=== PATIENT | female | born 1935 | race Caucasian/White ===

== ENCOUNTER 2016-06-19 11:01 | Day surgery (SDCO) | payer MEDICARE, OTHER ==
[2016-06-19 11:24] LABS: BILIRUBIN NEGATIVE (NEGATIVE); BLOOD TRACE-INTACT Ery/uL (NEGATIVE); COLOR YELLOW (YELLOW); GLUCOSE (U) NORMAL (NORMAL); KETONE (U) TRACE mg/dL (NEGATIVE); LEUKOCYTES 2+ Leu/uL (NEGATIVE); NITRITE NEGATIVE (NEGATIVE); PROTEIN NEGATIVE (NEGATIVE); UROBILINOGEN 0.2 mg/dL (0.2-1.0)
[2016-06-19 11:27] LABS: CLARITY HAZY (CLEAR)
[2016-06-19 11:28] LABS: SQUAMOUS EPITHELIAL CELLS RARE
[2016-06-19 12:14] LABS: BASOPHIL 0.2 % (0-2); EOSINOPHIL 0.5 % (0-7); HCT 39.6 % (37.0-47.0); HGB 14.2 g/dl (12.5-16.0); LYMPHOCYTE 15.1 % (15-48); MCHC 35.9 g/dL (32.0-36.0); MCV 86.5 fL (78.0-100.0); MONOCYTE 8.4 % (0-12); MPV 9.4 fL (6.0-9.5); NEUTROPHIL 75.8 % (41-80); PLT 263 K/uL (150-400); RBC 4.58 M/uL (4.20-5.40); RDW 12.5 % (11.5-14.0); WBC 8.3 K/uL (4.0-10.5)
[2016-06-19 12:35] LABS: ALBUMIN 4.4 g/dL (3.4-4.8); BILIRUBIN - TOTAL 0.7 mg/dL (0.1-1.0); CREATININE 0.9 mg/dL (0.5-1.0); GLOBULIN (CALCULATION) 2.8 g/dL (2.2-4.2); POTASSIUM 4.3 mmol/L (3.5-5.1); TOTAL PROTEIN 7.2 g/dL (6.4-8.3)
[2016-06-20 05:33] LABS: CREATININE 0.8 mg/dL (0.5-1.0); POTASSIUM 3.9 mmol/L (3.5-5.1)
[2016-06-20] MEDS ORDERED: PRAVACHOL40 MG PO (11:23)
[2016-06-20] MEDS ORDERED: METFORMIN HCL500 M2 PO (11:24)
[2016-06-20] MEDS ORDERED: BENAZEPRIL HCL20 MG PO (11:24)
[2016-06-20] MEDS ORDERED: PRILOSEC20 MG PO (11:25)
[2016-06-20] MEDS ORDERED: ASPIRIN CHEWABL81 MG PO (11:25)
[2016-06-20] MEDS ORDERED: BYSTOLIC10 MG PO (11:26)
[2016-06-20] MEDS ORDERED: VITAMIN D5000 UNIT PO (11:26)
[2016-06-20] MEDS ORDERED: CALCIUM + D3 E1 EACH PO (11:26)
[2016-06-20] MEDS ORDERED: ELAVIL10 MG PO (11:27)
== END 2016-06-20 11:30 | disposition home or self-care (01) ==
LOC: FER 11:01 → FMS 17:03
PROVIDERS: Emergency Medicine; ADMIT Internal Medicine Cardiovascular Disease
DX: E87.1 Hypo-osmolality and hyponatremia (principal); I10 Essential (primary) hypertension; E78.5 Hyperlipidemia, unspecified; E11.40 Type 2 diabetes mellitus with diabetic neuropathy, unspecified; K21.9 Gastro-esophageal reflux disease without esophagitis; Z88.5 Allergy status to narcotic agent; Z88.8 Allergy status to other drugs, medicaments and biological substances; Z79.84 Long term (current) use of oral hypoglycemic drugs; Z79.82 Long term (current) use of aspirin; Z79.899 Other long term (current) drug therapy; Z90.49 Acquired absence of other specified parts of digestive tract; Z96.659 Presence of unspecified artificial knee joint; Z98.890 Other specified postprocedural states; Z80.1 Family history of malignant neoplasm of trachea, bronchus and lung; Z83.3 Family history of diabetes mellitus; Z82.49 Family history of ischemic heart disease and other diseases of the circulatory system
CPT/HCPCS: 36415; 71020; 80048; 80053; 81001; 82962; 84300; 85025; G0378

== ENCOUNTER 2021-02-13 16:48 | Emergency (ER) | payer MEDICARE, OTHER ==
[~2021-02-13 16:48] MED LIST: ASPIRIN CHEWABL81 MG PO; ASPIRIN EC81 M1 PO; ATIVAN0.5 M1 PO; BACLOFEN 10MG T10 MG PO; BENAZEPRIL HCL20 MG PO; BYSTOLIC10 MG PO; CALCIUM + D3 E1 EACH PO; CALCIUM CITRAT1 EA14 PO; ELAVIL10 MG PO; LASIX20 MG PO; LIDOCAINE 5% P1 EACH TOP; LOTENSIN40 MG PO; METFORMIN HCL500 M2 PO; METOPROLOL SUCC25 MG PO; NORVASC5 MG PO; OMEPRAZOLE20 MG PO; PRAVACHOL40 MG PO; PRAVASTATIN SOD40 MG PO; PRILOSEC20 MG PO; TRAMADOL HCL50 MG PO; VITAMIN D35000 UNIT PO; VITAMIN D5000 UNIT PO
[2021-02-13 18:15] LABS: BASOPHIL 0.3 % (0-2); EOSINOPHIL 0.8 % (0-7); HCT 41.6 % (37.0-47.0); HGB 13.6 g/dl (12.5-16.0); LYMPHOCYTE 22.3 % (15-48); MCH 30.8 pg (25.0-31.0); MCHC 32.7 g/dL (32.0-36.0); MCV 94.1 fL (78.0-100.0); MONOCYTE 8.9 % (0-12); MPV 10.1 fL (6.0-9.5); NEUTROPHIL 67.5 % (41-80); NRBC 0; PLT 174 K/uL (150-400); RBC 4.42 M/uL (4.20-5.40); RDW 13.7 % (11.5-14.0); WBC 8.9 K/uL (4.0-10.5)
[2021-02-13 18:51] LABS: ALBUMIN 3.8 g/dL (3.4-5.0); BILIRUBIN - TOTAL 0.4 mg/dL (0.2-1.0); BUN/CREAT RATIO (CALC) 22.7 RATIO; CREATININE 0.88 mg/dL (0.51-0.95); GLOBULIN (CALCULATION) 3.5 g/dL; POTASSIUM 4.6 mmol/L (3.5-5.1); TOTAL PROTEIN 7.3 g/dL (6.4-8.2)
[2021-02-13 22:46] LABS: BILIRUBIN NEGATIVE (NEGATIVE); BLOOD NEGATIVE Ery/uL (NEGATIVE); CLARITY CLEAR (CLEAR); COLOR YELLOW (YELLOW); GLUCOSE (U) NORMAL (NORMAL); LEUKOCYTES TRACE Leu/uL (NEGATIVE); NITRITE NEGATIVE (NEGATIVE); PROTEIN NEGATIVE (NEGATIVE); SPECIFIC GRAVITY 1.015 (1.001-1.030); UROBILINOGEN 0.2 mg/dL (0.2-1.0)
[2021-02-13 22:59] LABS: SQUAMOUS EPITHELIAL CELLS RARE
[2021-02-13 23:08] LABS: CORONAVIRUS 2019 SARS-COV-2 NEGATIVE (NEGATIVE); INFLUENZA A NAA NEGATIVE (NEGATIVE)
[2021-02-13] MEDS ORDERED: ANTIVERT12.5 MG PO (23:23)
== END 2021-02-13 23:55 | disposition home or self-care (01) ==
LOC: FER 16:48
PROVIDERS: Emergency Medicine Emergency Medical Services; Physician Assistant
DX: R55 Syncope and collapse (principal); I10 Essential (primary) hypertension; Z20.822 Contact with and (suspected) exposure to COVID-19; Z79.82 Long term (current) use of aspirin; Z88.5 Allergy status to narcotic agent; Z88.8 Allergy status to other drugs, medicaments and biological substances
CPT/HCPCS: 36415; 70450; 71045; 80053; 81001; 84484; 85025; 93005; J7040; U0002